=== PATIENT | male | born 1950 | race Two or more races ===

== ENCOUNTER 2018-09-08 21:51 | Emergency (ER) | payer MEDICARE, MEDICAID ==
[~2018-09-08] VITALS: Ht 177.8 cm; Wt 86.2 kg
--- NOTE | 2018-09-08 22:05 | NUR ---
ED Nurse Note: PT BROUGHT IN BY AMBULANCE C/O GTUBE OUT, PER EMS REPORT, PT WAS FOUND WITH GTUBE ON THE SIDE AROUND 630PM, UPON ARRIVAL, NOTED DRESSING BUT GTUBE NOTED. ACTIVE BS, ABD MILD DISTENDED NONTENDER. GTUBE OPENING PINK.
[2018-09-08] MEDS ORDERED: LOSARTAN-HCTZ1 EACH ORAL (22:07)
[2018-09-08] MEDS ORDERED: VITAMIN C500 M1 ORAL (22:07)
[2018-09-08] MEDS ORDERED: SIMVASTATIN20 MG ORAL (22:07)
[2018-09-08] MEDS ORDERED: LANSOPRAZOLE30 MG ORAL (22:07)
[2018-09-08] MEDS ORDERED: AMLODIPINE BESYL5 MG ORAL (22:07)
[2018-09-08] MEDS ORDERED: LEVETIRACE100 MG/1 M GT (22:07)
[2018-09-08] MEDS ORDERED: DONEPEZIL HCL5 M2 ORAL (22:07)
[2018-09-08] MEDS ORDERED: NAMENDA5 MG ORAL (22:07)
--- NOTE | 2018-09-08 22:22 | Emergency Room Report ---
History of Present Illness General Chief Complaint: General Complaint Source: Medical Record, EMS Present Illness HPI This is a 67-year-old male from assisted. He presents with chief complaint of G-tube dislodgment. Occur some time this late afternoon early evening. No other trauma. No bleeding. Denies any other complaint. History is limited because the patient is nonverbal. Allergies: Coded Allergies: No Known Allergies (Unverified , 09/08/18) Patient History Past Medical History: see triage record, old chart reviewed Past Surgical History: other Pertinent Family History: none Social History: Denies: smoking Immunizations: other Reviewed Nursing Documentation: PMH: Agreed; PSxH: Agreed Nursing Documentation-PMH Hx Hypertension: Yes Hx COPD: Yes Hx Neurological Problems: Yes - DEMENTIA Hx Seizures: Yes - EPILEPSY Review of Systems All Other Systems: limited - Secondary to patient's condition Physical Exam Vital Signs Date Time Temp Pulse Resp B/P (MAP) Pulse Ox O2 Delivery O2 Flow Rate FiO2 09/08/18 21:54 98.2 82 22 94/61 91 Room Air vitals unremarkable Sp02 EP Interpretation: reviewed, normal General Appearance: well appearing, no apparent distress, alert Head: normocephalic, atraumatic Eyes: bilateral eye PERRL, bilateral eye EOMI ENT: hearing grossly normal, normal pharynx Neck: full range of motion, supple, no meningismus Respiratory: chest non-tender, lungs clear, normal breath sounds Cardiovascular #1: regular rate, rhythm, no murmur Gastrointestinal: normal bowel sounds, non tender, no mass, no organomegaly, no bruit, non-distended, other - G-tube site intact Musculoskeletal: back normal, other - Contracted Psychiatric: mood/affect normal Skin: warm/dry Procedures Additional Procedure Procedure Narrative Procedure: G-tube placement Indication: G-tube dislodgment Description: Initially I tried a 20 Trinidadian G-tube but it was too big. Then I tried an 18 Trinidadian G-tube and was placed without difficulty. Patient tolerated procedure without any complication. X-rays ordered. Medical Decision Making Diagnostic Impression: Primary Impression: Gastrojejunostomy tube dislodgement Additional Impression: Encounter for gastrojejunal tube placement ER Course Sent here for G-tube placement. No evidence of extravasation. We'll discharge back to assisted. Other X-Ray Diagnostic Results Other X-Ray Diagnostic Results : X-Ray ordered: KUB with Gastrografin # of Views/Limited Vs Complete: 1 View Indication: Pain EP Interpretation: Yes Interpretation: no dislocation, no soft tissue swelling, no fractures, other - No extravasation Impression: Other - Successful G-tube placement Electronically Signed by: Isacc Lund MD Last Vital Signs Date Time Temp Pulse Resp B/P (MAP) Pulse Ox O2 Delivery O2 Flow Rate FiO2 09/08/18 21:54 98.2 82 22 94/61 91 Room Air Status: improved Disposition: XFER SNF Condition: Stable Additional Instructions: Follow-up with your Dr. in 7 days. Return if symptom worsen. Isacc Lund MD Sep 08, 2018 22:22
--- NOTE | 2018-09-08 22:27 | NUR ---
Spoke with Wiliam at [facility]-aware of patient is going back.
[2018-09-08 22:45] VITALS: BP 127/68
--- NOTE | 2018-09-08 22:55 | NUR ---
ED Nurse Note: GTUBE PLACEMENT DONE BY ERMD, 18G, 20CC AIR INSERTED, +SOUND NOTED IN ABD, XRAY DONE AT BEDSIDE FOR PLACEMENT CONFIRMATION, PER ERMD PLACEMENT CONFIRMED. GTUBE FLUSHED W/ 20CC WATER.
[2018-09-08 23:03] VITALS: BP 122/57
--- NOTE | 2018-09-08 23:05 | NUR ---
ED Nurse Note: pt cleared to be d/c per ERMD, pt d/c & aftercare instruction given to amb personnel, BLS amb at the bedside for transport, pt no belongings, vss, gtube intact and dressing intact. endorsed care to ambulance EMT.
--- NOTE | 2018-09-08 23:34 | Diagnostic Imaging Report ---
EXAM: XR Abdomen, 1 View CLINICAL HISTORY: TUBE PLCMT TECHNIQUE: Frontal view of the abdomen/pelvis. COMPARISON: No relevant prior studies available. FINDINGS: Intraperitoneal space: No gross free air. Gastrointestinal tract: Unremarkable. No dilation. Bones/joints: Degenerative changes. Tubes, lines and devices: Percutaneous gastrostomy tube is seen with contrast seen within the stomach duodenum and proximal jejunum suggesting appropriate placement. IMPRESSION: Percutaneous gastrostomy tube is seen with contrast seen within the stomach duodenum and proximal jejunum suggesting appropriate placement.
== END 2018-09-08 23:05 ==
LOC: EDBD 21:51 → EMR 22:08
DX: Z43.1 Encounter for attention to gastrostomy (principal); I10 Essential (primary) hypertension; J44.9 Chronic obstructive pulmonary disease, unspecified; F03.90 Unspecified dementia, unspecified severity, without behavioral disturbance, psychotic disturbance, mood disturbance, and anxiety; G40.909 Epilepsy, unspecified, not intractable, without status epilepticus
CPT/HCPCS: 74018; 99283

== ENCOUNTER 2019-03-07 14:18 | Emergency (ER) | payer MEDICARE, MEDICAID ==
[~2019-03-07] VITALS: Ht 172.7 cm; Wt 90.7 kg
[~2019-03-07 14:18] MED LIST: AMLODIPINE BESYL5 MG ORAL; DONEPEZIL HCL5 M2 ORAL; LANSOPRAZOLE30 MG ORAL; LEVETIRACE100 MG/1 M GT; LOSARTAN-HCTZ1 EACH ORAL; NAMENDA5 MG ORAL; SIMVASTATIN20 MG ORAL; VITAMIN C500 M1 ORAL
--- NOTE | 2019-03-07 14:47 | NUR ---
ED Nurse Note: pt arrives from [facility] for eval of gtube leaking and "tear" of gtube. pt noted to have 16fr gtuve in place. no dyspnea no n/v no abd pain. no cp pt is nonverbal but alert
--- NOTE | 2019-03-07 14:58 | NUR ---
ED Nurse Note: gtube replaced by . associate professor of radiology aware to shoot film. pt tolerates well
--- NOTE | 2019-03-07 15:15 | NUR ---
ED Nurse Note: gastrograffin instilled as per protocol for radiology confirmation
--- NOTE | 2019-03-07 15:32 | Emergency Room Report ---
History of Present Illness General Chief Complaint: Malfunctioning Gastric Tube Source: Patient, EMS Present Illness HPI This patient is brought in by EMS from a [place] [facility] facility. The primary care physician caring for this patient is requesting a replacement G-tube. Apparently the G-tube is malfunctioning and torn. This patient is unable to swallow and is dependent on G-tube feeding, fluids and medications. There are no other complaints. Allergies: Uncoded Allergies: TAPE MEDICAL (Allergy, Unknown, 03/07/19) Patient History Past Medical History: see triage record, HTN, CAD, COPD, CVA/TIA, dementia, seizures Social History: Denies: smoking, alcohol use, drug use Reviewed Nursing Documentation: PMH: Agreed; PSxH: Agreed Nursing Documentation-PMH Past Medical History: No History, Except For Hx Hypertension: Yes Hx COPD: Yes Hx Neurological Problems: Yes - DEMENTIA Hx Seizures: Yes - EPILEPSY Review of Systems All Other Systems: negative except mentioned in HPI Physical Exam Vital Signs Date Time Temp Pulse Resp B/P (MAP) Pulse Ox O2 Delivery O2 Flow Rate FiO2 03/07/19 14:23 98.1 65 18 93/51 (65) 91 Room Air Sp02 EP Interpretation: reviewed, normal General Appearance: no apparent distress, alert, GCS 15, non-toxic Head: normocephalic, atraumatic Eyes: bilateral eye normal inspection ENT: hearing grossly normal, normal pharynx, no angioedema, normal voice Neck: normal inspection, full range of motion, supple/symm/no masses Respiratory: chest non-tender, lungs clear, normal breath sounds, no respiratory distress, no retraction, no accessory muscle use, speaking full sentences Gastrointestinal: normal bowel sounds, non tender, soft, non-distended, no guarding, no rebound, other - Old 16F G-tube in place with torn port. Rectal: deferred Musculoskeletal: back normal, gait/station normal, normal range of motion, non- tender Neurologic: alert, responsive, other - At baseline for patient., grossly normal Psychiatric: mood/affect normal Skin: other - See RN skin exam Procedures Additional Procedure Procedure Narrative A 16 Sammarinese G-tube was placed after removal of malfunctioning G-tube in the typical fashion. 20 cc of sterile water was used to inflate the balloon. Medical Decision Making Diagnostic Impression: Primary Impression: Malfunction of percutaneous endoscopic gastrostomy (PEG) tube ER Course This patient presents for G-tube replacement. The G-tube was replaced in the typical manner without complication or incident. A KUB was obtained which showed Gastrografin consistent with appropriate placement in the stomach. The patient was returned to the [place] [facility] facility. Other X-Ray Diagnostic Results Other X-Ray Diagnostic Results : X-Ray ordered: KUB w/ Gastrografin # of Views/Limited Vs Complete: 1 View Indication: Other - Tube placement EP Interpretation: Yes Impression: Other - c/w appropriate G-tube placement in the stomach. Electronically Signed by: Samantha Mcknight DO Last Vital Signs Date Time Temp Pulse Resp B/P (MAP) Pulse Ox O2 Delivery O2 Flow Rate FiO2 03/07/19 14:23 98.1 65 18 93/51 (65) 91 Room Air Status: improved Disposition: HOME, SELF-CARE Condition: Improved Patient Instructions: Gastrostomy Tube Home Guide, Adult Samantha Mcknight DO Mar 07, 2019 15:32
--- NOTE | 2019-03-07 15:55 | Diagnostic Imaging Report ---
Indication: G-tube check Comparison: None Single view of the abdomen obtained Findings: Gastrostomy tube is projected over the mid to distal aspect of the stomach close to the antrum. There is contrast within the stomach, duodenum. No leak identified. IMPRESSION: Gastrostomy balloon in the distal body of the stomach. No leak.
--- NOTE | 2019-03-07 15:59 | NUR ---
ED Nurse Note: pt with gtube dressing done awaiting s ambulance back to [facility].
--- NOTE | 2019-03-07 18:24 | NUR ---
ED Nurse Note: pt awaiting transport back to [facility], updated eta 1842
[2019-03-07 18:30] VITALS: BP 136/68
--- NOTE | 2019-03-07 19:15 | NUR ---
ED Nurse Note: Recieved report from am nurse to resume care, pt is waiting for transportatin back to SNF, waiting for [facility],ETA has been changed several times, pt in bed awake and alert, setswana speaking, v/s stable, new g-tube intact and patent, dressing clean and dry, will resume care and continue to closely monitor while waiting for ambulance for transport.
--- NOTE | 2019-03-07 20:25 | NUR ---
ED Nurse Note: Placed call to [facility] at [phone], verbal report given to JosiasRN, nurse on unit, pt has eta of 2044, pt in bed no changes or increased distress, will continue to monitor while waiting for transport, pt repositioned and turned with pillows.
[2019-03-07 20:45] VITALS: BP 129/71
[2019-03-07 21:30] VITALS: BP 129/71
--- NOTE | 2019-03-07 21:30 | NUR ---
ER DISCHARGE NOTE: Patient is cleared to be discharged per ERMD, pt is aox4, on room air, with stable vital signs. pt was given dc and prescription instructions, pt was able to verbalize understanding, pt id band removed without complications. pt is able to ambulate with steady gait. pt took all belongings. pt transported by [id number], verbal report and all d/c instructions given to semi driver Dejah, nad noted during pt transport.
== END 2019-03-07 21:30 | disposition home or self-care (01) ==
LOC: EDBD 14:18 → EMR 15:30
DX: K94.23 Gastrostomy malfunction (principal); I10 Essential (primary) hypertension; J44.9 Chronic obstructive pulmonary disease, unspecified; F03.90 Unspecified dementia, unspecified severity, without behavioral disturbance, psychotic disturbance, mood disturbance, and anxiety; G40.909 Epilepsy, unspecified, not intractable, without status epilepticus; I25.10 Atherosclerotic heart disease of native coronary artery without angina pectoris; Z86.73 Personal history of transient ischemic attack (TIA), and cerebral infarction without residual deficits; Z91.048 Other nonmedicinal substance allergy status
CPT/HCPCS: 74018; 99284

== ENCOUNTER 2019-10-13 11:42 | Emergency (ER) | payer MEDICARE, MEDICAID ==
[~2019-10-13] VITALS: Ht 172.7 cm; Wt 86.2 kg
[2019-10-13 11:53] VITALS: BP 110/60
--- NOTE | 2019-10-13 12:44 | Diagnostic Imaging Report ---
EXAM: XR Abdomen, 1 View CLINICAL HISTORY: TUBE PLCMT TECHNIQUE: Frontal view of the abdomen. COMPARISON: Abdominal x-ray dated 03/07/19 FINDINGS: Lower thorax: The lung bases are clear. Intraperitoneal space: No evidence of intraperitoneal free air. Gastrointestinal tract: Bowel gas pattern appears unremarkable. Organs: The renal shadows are obscured by overlying bowel gas. Bones/joints: Mild degenerative changes in the lower lumbar spine. Tubes, lines and devices: Percutaneous gastrostomy tube has its tip within the gastric body. GI contrast was administered via the tube and collects within the gastric lumen without evidence of extravasation. IMPRESSION: Percutaneous gastrostomy tube has its tip within the gastric body. GI contrast was administered via the tube and collects within the gastric lumen without evidence of extravasation.
[2019-10-13 13:36] VITALS: BP 117/72
[2019-10-13 13:38] VITALS: BP 110/60
--- NOTE | 2019-10-15 07:01 | Emergency Room Report ---
History of Present Illness General Chief Complaint: Malfunctioning Gastric Tube Source: Medical Record, EMS Present Illness HPI 69-year-old male presents the ED for G-tube replacement. [facility] Nursing staff notes that there is a tear in the G- tube. Patient has dementia. Nonverbal. Unable to provide any additional history at this time. No signs of distress on arrival. No reported fevers or chills. No cough or congestion. No other aggravating relieving factors. Denies any other associated symptoms Allergies: Uncoded Allergies: TAPE MEDICAL (Allergy, Unknown, 03/07/19) COVID-19 Screening Contact w/high risk pt: No Recent Travel to affected area: No Experienced COVID-19 symptoms?: No Patient History Past Medical History: HTN, COPD, dementia, seizures Past Surgical History: none Pertinent Family History: none Social History: Denies: smoking, alcohol use, drug use Immunizations: UTD Reviewed Nursing Documentation: PMH: Agreed; PSxH: Agreed Nursing Documentation-PMH Past Medical History: No History, Except For Hx Hypertension: Yes Hx COPD: Yes Hx Neurological Problems: Yes - DEMENTIA Hx Seizures: Yes - EPILEPSY Review of Systems All Other Systems: limited Physical Exam Vital Signs Date Time Temp Pulse Resp B/P (MAP) Pulse Ox O2 Delivery O2 Flow Rate FiO2 10/13/19 11:42 98.2 73 16 104/64 (77) 92 Room Air Sp02 EP Interpretation: reviewed, normal General Appearance: no apparent distress, GCS 15, non-toxic, other - dementia Head: normocephalic Eyes: bilateral eye normal inspection, bilateral eye PERRL ENT: normal ENT inspection Neck: normal inspection Respiratory: chest non-tender, lungs clear, normal breath sounds, speaking full sentences Cardiovascular #1: regular rate, rhythm, no edema Gastrointestinal: other - Gtube site C/D/I. tear to distal aspect of Gtube Rectal: deferred Genitourinary: no CVA tenderness Musculoskeletal: normal inspection Neurologic: other - dementia Psychiatric: other - dementia Skin: no rash Lymphatic: normal inspection Procedures Additional Procedure Procedure Narrative G-tube placement Patient placed on stretcher. Old G-tube is removed by deflating the balloon using syringe. G-tube site is inspected with no contraindications to G-tube placement. G-tube slowly inserted until resistance is met; G-tube balloon is slowly filled with 20 mL of normal saline and slowly retracted back until resistance is met. G-tube placement is confirmed with KUB study using Gastrografin Medical Decision Making Diagnostic Impression: Primary Impression: Malfunction of gastrostomy tube ER Course Hospital Course 69-year-old male presents to ED for G-tube placement. torn Clinical course Patient placed on stretcher. After initial history and physical I replaced G- tube and inflate the balloon. G-tube placement confirmed with KUB study. Patient remained stable without any signs of distress. [facility] called and patient subsequently discharged back to facility. Dr nava made aware that G-tube was successfully replaced and patient return to facility Diagnosis - malfunction of G tube stable and discharged back to facility. Followup with PMD. Return to ED if symptoms recur or worsen Other X-Ray Diagnostic Results Other X-Ray Diagnostic Results : X-Ray ordered: KUB # of Views/Limited Vs Complete: 1 View Indication: Pain EP Interpretation: Yes Interpretation: nonspecific bowel gas, no sbo, other - Gtube in place Impression: Other - Gtube in place Electronically Signed by: Electronically signed by Ryan Delgado MD Last Vital Signs Date Time Temp Pulse Resp B/P (MAP) Pulse Ox O2 Delivery O2 Flow Rate FiO2 10/13/19 13:38 98.0 100 18 110/60 95 Room Air Status: improved Disposition: SNF Condition: Stable Referrals: Gerald Nava MD (PCP) Patient Instructions: Gastrostomy Tube Home Guide, Adult Ryan Delgado MD Oct 15, 2019 07:01
== END 2019-10-13 13:45 ==
LOC: EDBD 11:42 → EMR 12:51
DX: K94.23 Gastrostomy malfunction (principal); I10 Essential (primary) hypertension; J44.9 Chronic obstructive pulmonary disease, unspecified; F03.90 Unspecified dementia, unspecified severity, without behavioral disturbance, psychotic disturbance, mood disturbance, and anxiety; G40.909 Epilepsy, unspecified, not intractable, without status epilepticus
CPT/HCPCS: 74018; 99284